=== PATIENT | female | born 1985 | race Caucasian/White ===

== ENCOUNTER 2017-01-10 10:16 | Emergency (ER) | payer OTHER ==
[~2017-01-10] VITALS: Ht 170.2 cm; Wt 77.1 kg
--- NOTE | 2017-01-10 10:55 | RAD ---
Indication: Head injury. Axial imaging through the brain was performed without contrast. The ventricles and sulci are within normal limits. No sulcal effacement, midline shift or hemorrhage is detected. The cisterns are patent. Visualized paranasal sinuses are clear. Impression: No acute intracranial process is detected. PQRS Compliance Statement: One or more of the following individualized dose reduction techniques were utilized for this examination: 1. Automated exposure control 2. Adjustment of the mA and/or kV according to patient size 3. Use of iterative reconstruction technique
[2017-01-10] MEDS ORDERED: TRAM-48 PO (11:22)
--- NOTE | 2017-01-10 11:22 | PHYS DOC ---
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 Patient states school nurse reported that she had a large contusion of her head. Patient rated her pain 9/10 and complaining of photophobia without focal neuro deficit or other injuries aor nausea and vomiting. Patient denies . Review of Systems Review of Systems Constitutional: Denies fever or chills [] Eyes: Denies change in visual acuity, redness, or eye pain [] HENT: Denies nasal congestion or sore throat [] Respiratory: Denies cough or shortness of breath [] Cardiovascular: No additional information not addressed in HPI [] GI: Denies abdominal pain, nausea, vomiting, bloody stools or diarrhea [] : Denies dysuria or hematuria [] Musculoskeletal: Denies back pain or joint pain [] Integument: Denies rash or skin lesions [] Neurologic: Denies focal weakness or sensory changes , report headache[] Endocrine: Denies polyuria or polydipsia [] All other systems were reviewed and found to be within normal limits, except as documented in this note. Allergies Allergies Allergies Coded Allergies Type Severity Reaction Last Updated Verified Sulfa (Sulfonamide Antibiotics) Allergy Intermediate 01/10/17 Yes Physical Exam Physical Exam Constitutional: Well developed, well nourished, mild distress, anxious and tearful, non-toxic appearance. [] HENT: Normocephalic, atraumatic, bilateral external ears normal, oropharynx moist, no oral exudates, nose normal. [] Eyes: PERRLA, EOMI, conjunctiva normal, no discharge. [] Neck: Normal range of motion, no tenderness, supple, no stridor. [] Cardiovascular:Heart rate regular rhythm, no murmur [] Lungs & Thorax: Bilateral breath sounds clear to auscultation [] Abdomen: Bowel sounds normal, soft, no tenderness, no masses, no pulsatile masses. [] Skin: Warm, dry, no erythema, no rash. [] Back: No tenderness, no CVA tenderness. [] Extremities: No tenderness, no cyanosis, no clubbing, ROM intact, no edema. [] Neurologic: Alert and oriented X 3, normal motor function, normal sensory function, no focal deficits noted. Left side parietal scalp small contusion [] Psychologic: Affect normal, judgement normal, mood normal. [] Current Patient Data Vital Signs Vital Signs Date Time Temp Pulse Resp B/P (MAP) Pulse Ox O2 Delivery O2 Flow Rate FiO2 01/10/17 10:20 97.9 81 18 97 Room Air EKG EKG [] Radiology/Procedures Radiology/Procedures [] Course & Med Decision Making Course & Med Decision Making Pertinent Imaging studies reviewed. (See chart for details) Evaluation of patient in ER showed 31-year-old male patient presented to ER after head injury at school. Patient had unremarkable neuro exam and CT head and treated with Toradol and felt better. Plan to discharge patient home with diagnose of concussion and scalp contusion. [] Dragon Disclaimer Dragon Disclaimer This electronic medical record was generated, in whole or in part, using a voice recognition dictation system. Departure Departure: Impression: Primary Impression: Concussion Additional Impression: Scalp contusion Disposition: 01 HOME, SELF-CARE (At 1130) Condition: IMPROVED Referrals: KLAUDIA TAYLOR MD (PCP) Follow-up with your physician in 3-5 days Patient Instructions: Concussion-SportsMed Scripts Tramadol Hcl (ULTRAM) 50 Mg Tablet 50 MG PO PRN Q6HRS Y for PAIN, #14 TAB Prov: ASHWINI GARNER MD 01/10/17 Problem Qualifiers ASHWINI GARNER MD Jan 10, 2017 11:22
[2017-01-10 11:38] VITALS: BP 132/76
[2017-01-10] MEDS ORDERED: traMADol 50 MG TABLET PO ONE (12:00)
== END 2017-01-10 11:42 | disposition home or self-care (01) ==
LOC: ER 10:16
DX: S06.0X0A Concussion without loss of consciousness, initial encounter (principal); Z88.2 Allergy status to sulfonamides; W20.8XXA Other cause of strike by thrown, projected or falling object, initial encounter; Y93.89 Activity, other specified; Y99.8 Other external cause status; Y92.89 Other specified places as the place of occurrence of the external cause
CPT/HCPCS: 70450; 99284-25